=== PATIENT | female | born 1995 | race Hispanic/Latino ===

== ENCOUNTER 2019-09-11 16:49 | Day surgery (SDC) | payer OTHER ==
[2019-09-11 17:26] VITALS: BMI 27.3
[2019-09-11] MEDS ORDERED: hydrALAZINE 20 MG/ML VIAL SLOW IVP PRN (17:39)
--- NOTE | 2019-09-11 18:04 | PDOC.FPROB ---
FMR OB H&P: Medications - Current Home Medications: Medication Instructions Recorded Confirmed Type Mv-Mn/Iron/FA/Herbal/Digestive 10 mg PO DAILY 08/14/19 08/14/19 History [ One Tablet] Allergies/Adverse Reactions: Allergies Allergy/AdvReac Type Severity Reaction Status Date / Time No Known Allergies Allergy Verified 09/11/19 17:23 FMR OB H&P: A/P Discussion: Date/Time: 09/11/19 8402 This H&P was discussed with [] and [] who agree with the above documentation and plan.
[2019-09-11 18:42] LABS: ALT (SGPT) Less than 7 U/L (8-55); Albumin 3.2 g/dL (3.5-5.0); Alkaline Phosphatase 193 U/L (40-110); Calc. Creatinine Clearance 155 mL/min (70-130); Chloride 109 mmol/L (98-107); Estimated GFR-MDRD Greater than 90; Globulin 3.3 g/dL (2.4-3.5); Potassium 3.7 mmol/L (3.5-5.1); Protein, Total 6.5 g/dL (6.0-8.3); Sodium 138 mmol/L (136-145)
[2019-09-11 18:48] LABS: Calcium 9.5 mg/dL (7.8-10.44); Glucose 108 mg/dL (70-105)
[2019-09-11 18:50] LABS: Anion Gap 14 mmol/L (10-20); Bilirubin, Total 0.2 mg/dL (0.2-1.2); Carbon Dioxide 19 mmol/L (22-29)
[2019-09-11 18:53] LABS: BUN (Urea Nitrogen) 9 mg/dL (7.0-18.7)
[2019-09-11 18:54] LABS: AST (SGOT) 14 U/L (5-34)
[2019-09-11 19:37] LABS: Creatinine, Urine 74.93 mg/dL (47-110)
[2019-09-11 19:41] LABS: #Basophils 0.1 thou/uL (0.0-0.2); #Lymphocytes 2.4 thou/uL (1.20-3.40); #Monocytes 0.5 thou/uL (0.11-0.59); #Neutrophils 3.7 thou/uL (1.40-6.50); %Eosinophils 0.7 % (0.0-10.0); %Lymphocytes 35.3 % (21.0-51.0); %Monocytes 7.7 % (0.0-10.0); %Neutrophils 55.3 % (42.0-75.0); Hemoglobin 13.8 g/dL (12.0-16.0); Mean Corpuscular Hemoglobin 32.1 pg (27.0-31.0); Mean Corpuscular Volume 94.4 fL (78.0-98.0); Mean Platelet Volume 10.5 fL (7.4-10.4); Platelet Count 170 thou/uL (130-400); White Blood Cell (WBC) Count 6.7 thou/uL (4.8-10.8)
--- NOTE | 2019-09-11 20:29 | PDOC.EVN ---
Event Note - Event Note Event Note: OBGYN Faculty Patient of the C Sent here for BP obs and U P/Cr ratio of 1 in the clinic earlier. Patient is a 24 yo G1 at 35 weeks with BPs 130/80s to 150/802. No evere pressures here. No symptoms noted. Case reviewed with Dr Santos and Lizz keyes seen the patient at bedside. OK for outpatient care with close follow up. We will give celestone now and second tomorrow in case medically indicated labor occurs. Has IOL for 36 weeks 6 days for ripening. PIH info given. See full H&P
--- NOTE | 2019-09-11 20:35 | PDOC.FPROB ---
FMR OB H&P: Medications - Current Home Medications: Medication Instructions Recorded Confirmed Type Mv-Mn/Iron/FA/Herbal/Digestive 10 mg PO DAILY 08/14/19 08/14/19 History [ One Tablet] Allergies/Adverse Reactions: Allergies Allergy/AdvReac Type Severity Reaction Status Date / Time No Known Allergies Allergy Verified 09/11/19 17:23 FMR OB H&P: Results - Labs Lab results: Laboratory Results - last 24 hr 09/11/19 09/11/19 09/11/19 17:49 18:30 19:35 WBC 6.7 RBC 4.30 Hgb 13.8 Hct 40.5 MCV 94.4 MCH 32.1 H MCHC 34.0 RDW 12.0 Plt Count 170 MPV 10.5 H Neutrophils % 55.3 Lymphocytes % 35.3 Monocytes % 7.7 Eosinophils % 0.7 Basophils % 1.0 Neutrophils # 3.7 Lymphocytes # 2.4 Monocytes # 0.5 Eosinophils # 0.0 Basophils # 0.1 Sodium 138 Potassium 3.7 Chloride 109 H Carbon Dioxide 19 L Anion Gap 14 BUN 9 Creatinine 0.57 L Estimated GFR (MDRD) Greater than 90 Glucose 108 H Calcium 9.5 Total Bilirubin 0.2 AST 14 ALT Less than 7 L Alkaline Phosphatase 193 H Serum Total Protein 6.5 Albumin 3.2 L Globulin 3.3 Albumin/Globulin Ratio 1.0 L U Random Total Protein 80 H Urine Creatinine 74.93 FMR OB H&P: A/P - Problem List (1) Third trimester Current Visit: No Status: Acute Code(s): Z34.93 - ENCNTR FOR SUPRVSN OF NORMAL PREG, UNSP, THIRD TRIMESTER Discussion: Date/Time: 09/11/192033 PCP: Herminio- C HPI: Patient sent in from clinic for evaluation of pre-e. Had a pr/cr ratio of 1.0 in clinic and thus was sent for further evaluation. She affirms movement, denies cxns, ROM, bleeding. Denies HERRON, visual changes, SOB, or swelling. History: OB hx: G1 PMH: none PSH: none Meds: PNV All: NKDA Soc Hx: denies smoking, alcohol, drugs Fam Hx: denies downs, congenital defects REVIEW OF SYSTEMS: Gen: no fever, chills, or sweats Neuro: no numbness/tingling, no weakness, denies headache ENT: denies congestion Eyes: no visual changes Resp: denies cough, no production, no SOB, no wheeze Card: denies chest pain, no palpitations GI: denies nausea, vomiting, diarrhea : no dysuria, no hematuria Skin: no rash, no erythema Psych: denies hx anxiety/depression Vitals: T: 98.5 R: 18 BP: 123/84- Max 153/69 x1 P:67 at: 98% on RA PHYSICAL EXAMINATION: General: NAD, alert and oriented x3 HEENT: EOMI, normal sclera Neck: Supple. Full ROM. Heart/Cardiovascular System: RRR, Cap refill < 3 seconds, no rub, no murmur Lungs/Respiratory System: clear to auscultation bilaterally. No increased work of breathing. Room air. Abdomen/Gastro-Intestinal System: no abdominal tenderness, normal bowel sounds, Gravid Extremities: Warm extremities. No cyanosis or edema. Neuro: No gross deficits appreciated Psychiatry: Awake, Alert and cooperative with exam Skin: no lesions, no rashes Musculoskeletal: Full ROM A/P: This is a 23 yo here for pre-e r/o FHT: 140 baseline, mod variability, no decels, accels present [place]: no contractions # PIH w/o severe features - Pr/cr still 1.06, 1.0 in clinic - Asx - 3 mild range pressures - Will give steroids today, RTC for repeat dose tomorrow, and send home with precautions, discussed these at length including HERRON, vision changes, SOB, or abdominal pain. Has BP cuff at home RTC for pressures >160/110 - Scheduled for induction on sep 24 per patient, delivery is indicated at 37.0 wks
[2019-09-11] MEDS ORDERED: Betamet Acet/Betamet Na Ph 30 MG/5 ML VIAL IM SCH (20:45)
--- NOTE | 2019-09-11 22:30 | PDOC.BPN ---
Addendum entered and electronically signed by Lynda Buchanan MD 09/11/19 22 :31: Delete this note. Wrong patient. Original Note: <Lynda Buchanan - Last Filed: 09/11/19 22:29> - Brief Progress Note Placed cook catheter successfully. Previous SVE /-2. Will start pitocin. Dr. Jeison Tolentino present for insertion of balloon. <Jeison Tolentino - Last Filed: 09/11/19 23:01> - Brief Progress Note Entered IN ERROR.
== END 2019-09-11 21:30 | disposition home or self-care (01) ==
LOC: L&D/OP 16:49
PROVIDERS: ATTEND Obstetrics & Gynecology
DX: O13.3 Gestational [pregnancy-induced] hypertension without significant proteinuria, third trimester (principal); Z3A.35 35 weeks gestation of pregnancy
CPT/HCPCS: 36415; 51701; 80053; 82570; 84156; 85025; 87081; 99284; J0702

== ENCOUNTER 2019-09-12 20:32 | Day surgery (SDC) | payer OTHER ==
[2019-09-12] MEDS ORDERED: hydrALAZINE 20 MG/ML VIAL SLOW IVP PRN (21:11)
[2019-09-12] MEDS ORDERED: Betamet Acet/Betamet Na Ph 30 MG/5 ML VIAL IM SCH (21:15)
--- NOTE | 2019-09-12 21:33 | PDOC.FPROB ---
FMR OB H&P: HPI - History of Present Illness Chief Complaint: BP check, steroid Indentification: 24 year old at 35.1 wks History of Present Illness: 24 year old at 35.1 wks presents for repeat BP and 2nd dose of steroids. Patient recently diagnosed with pre-E. She is checking her BP's at home and reports no BP's above 160/110. Patient denies headache, vision changes, RUQ pain , vaginal bleeding, vaginal discharge, LoF, or contractions. 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 CLINICAL RESEARCH MANAGER History: Denies - Surgical History Sx History: Denies - Social History Social History: Denies alcohol, tobacco, or drug use - Family History Family History: Denies significant family history FMR OB H&P: Medications - Current Home Medications: Medication Instructions Recorded Confirmed Type Mv-Mn/Iron/FA/Herbal/Digestive 10 mg PO DAILY 08/14/19 08/14/19 History [ One Tablet] Allergies/Adverse Reactions: Allergies Allergy/AdvReac Type Severity Reaction Status Date / Time No Known Allergies Allergy Verified 09/11/19 17:23 FMR OB H&P: ROS - Review of Systems General: denies: fever/chills Eyes: reports: others (Right eye irritation, redness). denies: vision changes ENT: denies: nasal congestion, sinus pain/pressure, sore throat Cardiovascular: denies: chest pain, palpitation, edema Respiratory: denies: cough, congestion, shortness of breath Gastrointestinal: denies: abdominal pain, nausea, vomiting, diarrhea Genitourinary (Female): denies: dysuria, vaginal discharge, vaginal pain, vaginal bleeding, contractions Musculoskeletal: denies: pain, stiffness Neurologic: denies: numbness, syncope Integumentary: denies: itching, rash Psychological: denies: depression, anxiety FMR OB H&P: Vital Signs - Maternal Vital signs: BP 143/92 89 Afebrile - Heart Tones Baseline: 135 Variability: moderate Acceleration: present Deceleration: absent [place] contractions every: None FMR OB H&P: Physical Exam - Physical Exam General: NAD, awake, alert and oriented HEENT: MMM, conjunctiva clear (Right sided conjunctiva injected), grossly normal vision, grossly normal hearing, other (Erythema along chin) Deviation from normal: Facial rash; erythema of bilateral medial cheeks, sparing bridge of nose Heart: RRR, pulses present General: no respiratory distress Abdomen: soft, gravid Musculoskeletal: pulses present, FROM in all four extremities Neurological: no tremor, no focal deficit Skin: no rash, capillary refill <2 seconds Lymphatic: no unusual bruising or bleeding, no purpura Psychiatric: intact recent and remote memory, good judgement and insight, normal mood and affect FMR OB H&P: A/P - Problem List (1) Pre-eclampsia Current Visit: Yes Status: Acute Code(s): O14.90 - UNSPECIFIED PRE-ECLAMPSIA , UNSPECIFIED TRIMESTER (2) Third trimester Current Visit: No Status: Acute Code(s): Z34.93 - ENCNTR FOR SUPRVSN OF NORMAL PREG, UNSP, THIRD TRIMESTER Disposition: 24 year old at 35.1 wks presents for repeat BP check sIUP - at 35.1 wks - G1 - Reactive NST Pre-E without severe features - Urine protein/creatinine 1.06 - 2nd dose of betamethasone given today - BP 143/92 today - Will need IOL at 37 weeks, not currently scheduled. - Advised to follow with [facility] next week Dispo: Discharge home. Return precautions provided. Follow up with [facility] next week. Discussion: Date/Time: 09/12/192123 This H&P was discussed with Dr. Malik who agrees with the above documentation and plan. Signature: Elissa Hernandez, PGY-3
== END 2019-09-12 21:41 | disposition home health service, planned readmission (86) ==
LOC: L&D/OP 20:32
PROVIDERS: ATTEND Obstetrics & Gynecology
DX: O14.03 Mild to moderate pre-eclampsia, third trimester (principal); Z3A.35 35 weeks gestation of pregnancy
CPT/HCPCS: 59025; 96372; 99282; J0702

== ENCOUNTER 2019-09-18 16:41 | Inpatient (IN) | payer MEDICAID, OTHER, SELFPAY ==
[~2019-09-18 16:41] MED LIST: Bupivacaine 0.25% HCL 30 ML VIAL ONE; Lidocaine 2% MPF 10 ML AMP (For Epidural Use) ONE
[2019-09-18 17:19] VITALS: BMI 33.6
--- NOTE | 2019-09-18 17:50 | PDOC.FPROB ---
FMR OB H&P: HPI - History of Present Illness Chief Complaint: Pre-E History of Present Illness: Pt is a 24 yo at 36.0 weeks, KRISTI 10/16/19, who presented to [facility] for routine check up. She was noted to have a severe range pressure, 150/110. She was instructed to be seen on L&D for further workup. She was asymptomatic otherwise. She was seen on 09/12/19 and diagnosed with pre-e, protein: creatinine ration was 1.06 at the time. She was discharged with close follow up and instructed to be induced at 37 weeks. No medications were started for elevated pressures. She did received 2 doses of betamethasone. She checks her pressures at home with her highest pressures 150's/90's. Today she is asymptomatic. Denies HERRON, vision changes, RUQ pain, chest pain, SOB , oliguria, LE edema. Denies vaginal fluid, bleeding, discharge. Endorsed contractions/pelvic pressure every 30 mins. 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: denies - Surgical History Sx History: denies - Social History Social History: denies alcohol, tobacco, drugs - Family History Family History: non-contributory FMR OB H&P: Medications - Current Home Medications: Medication Instructions Recorded Confirmed Type Mv-Mn/Iron/FA/Herbal/Digestive 10 mg PO DAILY 08/14/19 09/18/19 History [ One Tablet] Allergies/Adverse Reactions: Allergies Allergy/AdvReac Type Severity Reaction Status Date / Time No Known Allergies Allergy Verified 09/18/19 17:17 FMR OB H&P: ROS - Review of Systems General: denies: fever/chills, weight/appetite/sleep changes Eyes: denies: vision changes, double vision ENT: denies: nasal congestion, rhinorrhea Cardiovascular: denies: chest pain, palpitation, edema Respiratory: denies: cough, congestion, shortness of breath Gastrointestinal: denies: abdominal pain, nausea, vomiting, diarrhea, constipation Genitourinary (Female): reports: contractions, vaginal pressure. denies: incontinence, dysuria, vaginal discharge, vaginal pain, vaginal bleeding Musculoskeletal: denies: pain, stiffness Neurologic: denies: numbness, syncope, seizures, weakness FMR OB H&P: Vital Signs - Maternal Vital signs: Vital Signs - First Documented Temp Pulse Resp BP 98.6 F 103 H 18 139/95 H 09/18/19 16:59 09/18/19 16:59 09/18/19 16:59 09/18/19 16:59 - Heart Tones Baseline: 150 Variability: moderate Acceleration: absent Deceleration: absent Category: category 1 [place] contractions every: [id number] FMR OB H&P: Physical Exam - Physical Exam General: NAD, awake, alert and oriented HEENT: PERRLA, EOMI Neck: FROM, trachea midline Heart: RRR, normal S1/S2 General: CTAB, no respiratory distress, good air movement, no wheezing Abdomen: soft, gravid, non-tender Musculoskeletal: normal gait and station, pulses present Neurological: cranial nerves II through XII intact Skin: no rash, capillary refill <2 seconds Lymphatic: no purpura, no petechia Psychiatric: good judgement and insight - Pelvic Exam SVE: 1cm/25%/-3 Mora score: 2 Membranes: Intact FMR OB H&P: Results - Labs Lab results: Hgb 14.7 Platelets 163 Uric Acid 4.4 AST 11 ALT 7 Protein:Creatinine ratio 1.98 BG 110 FMR OB H&P: A/P - Problem List (1) Gestational diabetes mellitus Current Visit: No Status: Acute Code(s): O24.419 - GESTATIONAL DIABETES MELLITUS IN , UNSP CONTROL (2) Pre-eclampsia Current Visit: No Status: Acute Code(s): O14.90 - UNSPECIFIED PRE-ECLAMPSIA , UNSPECIFIED TRIMESTER (3) Third trimester Current Visit: No Status: Acute Code(s): Z34.93 - ENCNTR FOR SUPRVSN OF NORMAL PREG, UNSP, THIRD TRIMESTER Discussion: Date/Time: 09/18/19 1750 24 yo at 36.0 weeks presents with Pre-E, severe range pressures: # Term affected by Pre-E w/ severe range pressures: 1cm/25%/-3 at 2130. Mora 2. FHT's 150 with moderate variability, contractions felt every 30 mins producing vaginal pressure. Betamethasone x 2 doses given last week. - monitor pt overnight. If pt has continued severe range pressures will need to consider induction of labor. - will not administer mg, antihypertensives at this time. # GDM - diet controlled This H&P was discussed with Dr. Whitehead and Dr. Tuttle who agree with the above documentation and plan. Addendum - Attending - Attending Attestation Date/Time: 09/19/19 0639 I personally evaluated the patient and discussed the management with Dr. Stanley I agree with the History, Examination, Assessment and Plan documented above with any addition or exceptions noted below. PT has had 2 isolated severe range bp. Remaining bp are wnl. has ocassional mild range pressures. Pt dx with preeclampsia by bp and proteinuria. No severe features on exam or by lab. Will bp monitor over 24hours. If meets severe criteria will keep for iol. fetus cat 1 tracing
[2019-09-18 17:56] LABS: #Basophils 0.1 thou/uL (0.0-0.2); #Lymphocytes 2.7 thou/uL (1.20-3.40); #Monocytes 0.6 thou/uL (0.11-0.59); #Neutrophils 4.7 thou/uL (1.40-6.50); %Basophils 1.2 % (0.0-1.0); %Eosinophils 0.5 % (0.0-10.0); %Lymphocytes 33.5 % (21.0-51.0); %Monocytes 6.8 % (0.0-10.0); Hemoglobin 14.7 g/dL (12.0-16.0); Mean Corpuscular HGB CONC 33.9 g/dL (32.0-36.0); Mean Corpuscular Hemoglobin 32.5 pg (27.0-31.0); Mean Platelet Volume 10.9 fL (7.4-10.4); Platelet Count 163 thou/uL (130-400); RBC Distribution Width 12.4 % (11.5-14.5)
[2019-09-18 18:36] LABS: ALT (SGPT) 7 U/L (8-55); AST (SGOT) 11 U/L (5-34); Albumin 3.4 g/dL (3.5-5.0); Alkaline Phosphatase 204 U/L (40-110); Anion Gap 13 mmol/L (10-20); BUN (Urea Nitrogen) 11 mg/dL (7.0-18.7); Bilirubin, Total 0.2 mg/dL (0.2-1.2); Calc. Creatinine Clearance 161 mL/min (70-130); Calcium 9.5 mg/dL (7.8-10.44); Carbon Dioxide 21 mmol/L (22-29); Chloride 105 mmol/L (98-107); Estimated GFR-MDRD Greater than 90; Globulin 3.3 g/dL (2.4-3.5); Glucose 110 mg/dL (70-105); Protein, Total 6.7 g/dL (6.0-8.3); Sodium 135 mmol/L (136-145); Uric Acid 4.4 mg/dL (2.6-6.0)
[2019-09-18] MEDS ORDERED: Ondansetron PF 4 MG/2 ML Vial IVP PRN (22:20)
[2019-09-19] MEDS ORDERED: Acetaminophen 500 MG TAB PO SCH (08:00)
[2019-09-19] MEDS: Acetaminophen 500 MG TAB PO PRN ×2 (08:16→16:05)
[2019-09-19] MEDS ORDERED: Calcium Gluc 4.6 MEQ/10 ML (100 MG/ML) SLOW IVP PRN (09:09)
[2019-09-19] MEDS ORDERED: Lidocaine 1% (PF) 30 ML VIAL SC PRN (09:09)
[2019-09-19] MEDS ORDERED: NS / Oxytocin 40 units/1000ml 1,000 ML IV PRN (09:09)
[2019-09-19] MEDS ORDERED: Magnesium Sulfate 20 GM/WATER 500 ML BAG IVPB SCH (09:15)
--- NOTE | 2019-09-19 09:18 | PDOC.LDPN ---
Labor & Delivery Progress Note - Subjective Subjective: comfortable, other (new onset headache) - Objective Vital signs reviewed and normal: yes General: NAD, resting Uterine fundus: non tender SVE: Nurse Rubia Patino Dilation: 1 Effacement: 100% Station: -3 FHT: variability present (no contractions. FHT 135 baseline, and reactive. ) [place] contractions every: not present - Assessment (1) Pre-eclampsia Code(s): O14.90 - UNSPECIFIED PRE-ECLAMPSIA, UNSPECIFIED TRIMESTER Current Visit: No Status: Acute Qualifiers: Trimester: third trimester Qualified Code(s): O14.93 - Unspecified pre- eclampsia, third trimester (2) Third trimester Code(s): Z34.93 - ENCNTR FOR SUPRVSN OF NORMAL PREG, UNSP, THIRD TRIMESTER Current Visit: No Status: Acute Plan: labor augmentation -: 24 y/o @ 36.1 wks dated by 14 wk sono presenting with severe range pressures, admitted for medical induction of labor 1. IOL of IUP @ 36.1 wks - SVE @2100 on 09/18/-3, @ 0820 on 09/19/-3 posterior - inducing with cytotec, will re-evaluate in 4 hours. Will consider balloon insertion if minimal change. If pt makes cervical change, will start pitocin. - FHT's 135 baseline, reactive strip - No contractions on toco. - Pt desires epidural for pain management. 2. Pre-E, with severe features - Urine Pro/Cr 1.9 - New onset headache - few severe range pressures >160/110 - started Mag - monitor BP Q15 min 3. A1GDM - random glucose 110 yesterday. Dispo: stable, admit for Cytotec induction for Pre-E. Discussed care plan with Dr. Haywood and Dr. Gonzalez, who agree with above plan. Addendum - Attending - Attending Attestation Date/Time: 09/19/19 1323 I personally evaluated the patient and discussed the management with Dr. Monsalve. 24 yo LAF with h/o labile BPs, and Prot/Cr of 1.98 on admit last night, now with HERRON this AM. Will start Mg and begin Cytotec to proceed with delivery. I agree with the History, Examination, Assessment and Plan documented above.
[2019-09-19] MEDS ORDERED: Misoprostol 100 MCG TAB ONE ×4 (09:43→19:27)
[2019-09-19] MEDS: Magnesium Sulfate 20 GM in Dextrose 5% in Water 460 ML IV SCH (10:36)
[2019-09-19] MEDS ORDERED: Ibuprofen 800 MG TAB PO PRN (12:36)
[2019-09-19 13:21] LABS: Mean Corpuscular HGB CONC 32.5 g/dL (32.0-36.0); Mean Corpuscular Hemoglobin 31.4 pg (27.0-31.0); Mean Corpuscular Volume 96.6 fL (78.0-98.0); Mean Platelet Volume 12.2 fL (7.4-10.4); Platelet Count 167 thou/uL (130-400); RBC Distribution Width 12.7 % (11.5-14.5); Red Blood Cell (RBC) Count 4.78 mill/uL (4.20-5.40); White Blood Cell (WBC) Count 7.3 thou/uL (4.8-10.8)
[2019-09-19 14:00] LABS: Syphilis Antibody Nonreactive (Nonreactive); Syphilis Antibody Index 0.04 S/CO (<1.00 Non-Reactive)
[2019-09-19 14:01] LABS: HBSAg Index 0.23 S/CO (0-0.99); Hep B Surf Ag Non-Reactive S/CO (NonReactive)
[2019-09-19 14:42] LABS: Bilirubin Negative (Negative); Blood, Urine 2+ (Negative); Clarity Turbid (Clear); Glucose, Urine (Dipstick) Normal (Negative); Leukocyte 75 Leu/uL (Negative); Nitrite Negative (Negative); Protein, Urine (Dipstick) 50 mg/dL (Neg-Trace); RBC/HPF 21-50 HPF (0-3); Squamous Epithelial 0-3 HPF (0-3); Transitional Epithelial 0-3 HPF (None Seen); Urobilinogen Normal mg/dL (Less than 2)
[2019-09-19 14:43] LABS: Bacteria/HPF 1+ HPF (None Seen)
--- NOTE | 2019-09-19 20:27 | PDOC.LDPN ---
Labor & Delivery Progress Note - Subjective Subjective: painful contractions - Objective Abnormal vital signs: 156/100 BP General: NAD, resting, breathing through contractions Uterine fundus: non tender Dilation: 3 Effacement: 50% Station: -3 FHT: category 1, variability present [place] contractions every: 5 min Other exam findings: SROM @ 2000 Resuscitative measures: amniofusion, maternal IV fluids, maternal position change - Assessment (1) Gestational diabetes mellitus Code(s): O24.419 - GESTATIONAL DIABETES MELLITUS IN , UNSP CONTROL Current Visit: No Status: Acute (2) Pre-eclampsia Code(s): O14.90 - UNSPECIFIED PRE-ECLAMPSIA, UNSPECIFIED TRIMESTER Current Visit: No Status: Acute Qualifiers: Trimester: third trimester Qualified Code(s): O14.93 - Unspecified pre- eclampsia, third trimester (3) Third trimester Code(s): Z34.93 - ENCNTR FOR SUPRVSN OF NORMAL PREG, UNSP, THIRD TRIMESTER Current Visit: No Status: Acute Plan: continue plan of care -: 1) Preeclqamspia with severe features - recent cervical check showed /-3 - cat 1 strip baseline fhts 135 pos accles no late or variable decels - SROM approx 2000 - feeling painful contractions q5min, will recheck cervix q2hr and assess for change - consider pit pending cervical exams - GBS neg, no ppx Addendum - Attending - Attending Attestation Date/Time: 09/19/19 8484 I personally evaluated the patient and discussed the management with Dr. Beckman. I agree with the Assessment and Plan documented above.
[2019-09-19] MEDS ORDERED: Fentanyl 4 mcg/Bup 0.1% Cadd 100 ML ONE (20:43)
[2019-09-19] MEDS ORDERED: Ondansetron PF 4 MG/2 ML Vial IVP PRN (21:19)
[2019-09-19] MEDS ORDERED: Naloxone HCl 0.4 mg/ml Vial IVP PRN ×2 (21:19)
[2019-09-19] MEDS ORDERED: Promethazine HCl 25 MG/ML VIAL IM PRN (21:19)
[2019-09-19] MEDS ORDERED: diphenhydrAMINE 50 MG/ML VIAL IVP PRN (21:19)
[2019-09-19] MEDS ORDERED: Lactated Ringer's 500 ML IV PRN (21:19)
[2019-09-19] MEDS ORDERED: Acetaminophen 325 MG TAB PO PRN (21:19)
[2019-09-19] MEDS ORDERED: ePHEDrine/0.9% NaCl/PF SYRINGE 50 mg/10 ml SLOW IVP PRN (21:19)
[2019-09-19] MEDS ORDERED: Fentanyl 4 mcg/Bupivacaine 0.1% Cassette 100 ML EPIDURAL SCH (21:30)
[2019-09-19] MEDS ORDERED: Communication Order-Pharmacy FS SCH (21:30)
--- NOTE | 2019-09-19 21:42 | PDOC.LDPN ---
Labor & Delivery Progress Note - Subjective Subjective: comfortable, painful contractions - Objective Vital signs reviewed and normal: yes Dilation: 3-4 cm Effacement: 50% Station: -3 FHT: category 1 [place] contractions every: q2-3mins - Assessment (1) Gestational diabetes mellitus Code(s): O24.419 - GESTATIONAL DIABETES MELLITUS IN , UNSP CONTROL Current Visit: No Status: Acute (2) Pre-eclampsia Code(s): O14.90 - UNSPECIFIED PRE-ECLAMPSIA, UNSPECIFIED TRIMESTER Current Visit: No Status: Acute Qualifiers: Trimester: third trimester Qualified Code(s): O14.93 - Unspecified pre- eclampsia, third trimester (3) Third trimester Code(s): Z34.93 - ENCNTR FOR SUPRVSN OF NORMAL PREG, UNSP, THIRD TRIMESTER Current Visit: No Status: Acute Plan: continue plan of care -: 24 yo at 36.1 weeks presents with Pre-E, severe range pressures: # Term affected by Pre-E w/ severe range pressures: 3-4cm/50%/-3 at 2130. Mora 5. Head is not engaged. FHT's 140 with moderate variability. Betamethasone x 2 doses given last week. - monitor blood pressures - Mg Check, cervical check at 0000. Will consider starting pitocin if favorable. # GDM - diet controlled Addendum - Attending - Attending Attestation Date/Time: 09/20/19 0562 I personally evaluated the patient and discussed the management with Dr. Stanley. I agree with the Assessment and Plan documented above.
--- NOTE | 2019-09-19 22:22 | PDOC.LDPN ---
Labor & Delivery Progress Note - Subjective Subjective: comfortable, no concerns - Objective Vital signs reviewed and normal: yes General: NAD, resting Dilation: 5 Effacement: 75% Station: -2 FHT: category 1 [place] contractions every: q3 mins - Assessment (1) Gestational diabetes mellitus Code(s): O24.419 - GESTATIONAL DIABETES MELLITUS IN , UNSP CONTROL Current Visit: No Status: Acute (2) Pre-eclampsia Code(s): O14.90 - UNSPECIFIED PRE-ECLAMPSIA, UNSPECIFIED TRIMESTER Current Visit: No Status: Acute Qualifiers: Trimester: third trimester Qualified Code(s): O14.93 - Unspecified pre- eclampsia, third trimester (3) Third trimester Code(s): Z34.93 - ENCNTR FOR SUPRVSN OF NORMAL PREG, UNSP, THIRD TRIMESTER Current Visit: No Status: Acute Plan: continue plan of care -: 24 yo at 36.1 weeks presents with Pre-E, severe range pressures: # Term affected by Pre-E w/ severe range pressures: 5cm/75%/-2 at 2355. FHT's 140 with moderate variability. Betamethasone x 2 doses given last week. DTR's 2+, BP's < 160/110 - monitor blood pressures. - Mg Check, cervical check at 0400. - Continue current plan. # GDM - diet controlled Addendum - Attending - Attending Attestation Date/Time: 09/20/19 0655 I personally evaluated the patient and discussed the management with Dr. Stanley. I agree with the Assessment and Plan documented above.
[2019-09-20] MEDS: Magnesium Sulfate 20 GM in Dextrose 5% in Water 460 ML IV SCH ×2 (03:03→23:12)
[2019-09-20] MEDS ORDERED: hydrALAZINE 20 MG/ML VIAL SLOW IVP SCH (03:30)
[2019-09-20] MEDS ORDERED: Carboprost 250 MCG/ML AMP ONE (04:58)
[2019-09-20] MEDS ORDERED: Misoprostol 200 MCG TAB ONE (04:58)
[2019-09-20] MEDS ORDERED: Fentanyl 100 MCG/2 ML VIAL ONE (05:03)
[2019-09-20] MEDS ORDERED: Benzocaine-Menthol 82.5 ML CAN TOP PRN (05:31)
[2019-09-20] MEDS ORDERED: Preparation H Ointment 28 GM TUBE PR PRN (05:31)
[2019-09-20] MEDS ORDERED: hydrALAZINE 20 MG/ML VIAL SLOW IVP PRN (05:31)
[2019-09-20] MEDS ORDERED: Adacel (T-DAP) 0.5 ML SYRINGE IM ONE (05:31)
[2019-09-20] MEDS ORDERED: Bisacodyl 10 MG SUPP PR PRN (05:31)
[2019-09-20] MEDS ORDERED: Milk Of Magnesia 30 ML UDCUP PO PRN (05:31)
[2019-09-20] MEDS ORDERED: Lanolin Ointment 7 GM TUBE TOP PRN (05:31)
--- NOTE | 2019-09-20 05:43 | PDOC.OPDEL ---
OB Operative/Delivery Note Delivery Dr/Surgeon: Chastity/Rk/Marry/Jaden Pre-Delivery Diagnosis: medically indicated induction Procedure/Post Delivery Dx: spontaneous vaginal delivery Anesthesia: epidural - Additional Findings/Plan Placenta delivered: manual removal Repaired Obstetrical Laceration: 1st degree Compilations/Other Findings: Diagnoses Prior to Delivery: # Pre-Term # Pre-E w/ severe blood pressures # A1GDM # [place] non-immune Diagnoses Post Deliver: # Pre-Term # Pre-E w/ severe blood pressures # A1GDM # [place] non-immune # Placental Cord Avulsion w/ manual extraction # 1st Degree Laceration # Bilateral Periurethral Lacerations This is 24 yo F G1 P 0 @ 36.2 wks who delivered a viable F at 0441 on 09/20. Following an uneventful antepartum course, a vigorous female was delivered over an intact perineum in the left occipitoanterior position. Anterior Shoulder and then remainder of the body delivered. No nuchal cord. The head was held down and mouth and nares were bulb suctioned. Cord clamped after delayed cord clamping and cut and cord blood collected. Placenta manually delivered intact after cord avulsion. 3 vessel cord noted. Fundal massage was performed and the fundus was firm. The cervix and vagina were inspected and found to have bilateral periurethral lacerations noted and repaired with 2-0 chromic suture in the usual fashion with good approximation and hemostasis; first degree laceration noted and repaired with 3-0 chromic suture after fentanyl was given for manual extraction of placenta. Continued magnesium. QBL 328 mls. Infant went to nursery in good condition for routine care. Apgars were 8/9 at 1 & 5 minutes, respectively. Patient tolerated delivery well and went to after routine recovery/care. Upper level addendum: I, Mateo Beckman, DO agree with the above findings with exceptions noted below: 24 yo G1 s/p complicated by cord avulsion and retained placenta requiring manual extraction. Anesthesia called for adequate pain control prior to placental extraction, pt given 50mcg fentanyl prior to extraction. Placenta removed intact. 1st degree perineal laceration repaired by Dr Haywood with 2-0 chromic in running locking fashion and hemostasis noted after repair. Additionally, periurethral lacerations repaired by Dr Haywood with 3-0 chromic after placement of jones catheter, hemostasis noted b/l after repair. Given manual extraction, pp abx given ancef X3 doses ordered. Overall pt tolerated delivery and repair well with hemostasis noted after completion of repairs. Jones to remain in place 24 hours and pt to cont mag pp for severe preeclampsia. QBL pending. Post delivery plan: routine recovery Addendum - Attending - Attending Attestation Date/Time: 09/24/19 0912 I personally treated the patient with the Resident Team and discussed the management with Drs. Stanley and Rk. complicated by retained placenta, manual removal, repair of bilateral periurethral lacerations, and midline vaginal laceration. Jones placed. ABX x 3 doses ordered. I agree with the History, Examination, Assessment and Plan documented above.
[2019-09-20] MEDS ORDERED: NS / Oxytocin 40 units/1000ml 1,000 ML IV SCH (05:45)
--- NOTE | 2019-09-20 08:05 | PDOC.EVN ---
Event Note - Event Note Event Note: Magnesium Check: Pt is very tired from anesthesia, but otherwise has no complaints. Denies difficulty breathing or CP. VS: BP137/82, P110, O296%RA I/O: 100-200ml/hr PE: Gen: drowsy, NAD Lungs: non labored : jones in place with gross hematuria Neuro: DTR's 2/4, brisk Continue Mg for 24h. Repeat Mg check in 4h. Addendum - Attending - Attending Attestation Date/Time: 09/24/19 0928 I personally discussed the management with Dr. Tuttle. I agree with the Assessment and Plan documented above.
[2019-09-20] MEDS: CEFAZOLIN 1 GM in Sodium Chloride 0.9% 100 ML IVPB SCH ×3 (08:19→23:58)
[2019-09-20] MEDS: Ibuprofen 800 MG TAB PO SCH ×3 (08:21→21:57)
--- NOTE | 2019-09-20 14:24 | PDOC.PP ---
Post Progress Note Post Day #: 1 Subjective: 24 yo G1 s/p to a AGA female at ~430 09/20/2019 2/2 mIOL for preE with severe range blood pressures. PPD 0 Doing well. On magnesium for 24 hours (until 09/21/19 0430) pending BPs. UOP adequate Asymptomatic this morning. PO intake tolerated: yes Flatus: yes Ambulation: yes Vital Signs (12 hours) Pulse BP 09/20/19 03:47 103 H 156/101 H Weight Weight 73.028 kg - Physical Examination General: NAD Cardiovascular: no m/r/g, RRR Respiratory: clear to auscultation bilaterally Abdominal: + bowel sounds Fundus firm & at: umbilicus Skin: CS incision dry & intact Neurological: no gross focal deficits Psychiatric: A&Ox3 Result Diagrams: 09/19/19 13:09 09/18/19 17:50 Additional Labs: Post Labs Blood Type O POSITIVE 09/19/19 13:09 Hep Bs Antigen Non-Reactive S/CO (NonReactive) 09/19/19 13:09 (1) Term delivered Code(s): O80 - ENCOUNTER FOR FULL-TERM UNCOMPLICATED DELIVERY Status: Acute (2) (normal spontaneous vaginal delivery) Code(s): O80 - ENCOUNTER FOR FULL-TERM UNCOMPLICATED DELIVERY Status: Acute (3) Preeclampsia, severe Code(s): O14.10 - SEVERE PRE-ECLAMPSIA, UNSPECIFIED TRIMESTER Status: Acute (4) Gestational diabetes mellitus Code(s): O24.419 - GESTATIONAL DIABETES MELLITUS IN , UNSP CONTROL Status: Acute - Assessment/Plan 24 yo G1 @ 36.2wks s/p today 2/2 mIOL for preE with severe range blood pressures, on mag. PPD0 1.)sIUP, pre-term, delivered 2.)PreE with severe features (blood pressure) -s/p mIOl to a AGA female. Doing well. On mag. UOP adequate. BPs controlled. Asymptomatic. Ok to dc mag at 0430 09/21/19. -Monitor for additional 24 hours after that -continue other routine care -mag checks q4h by residents. -monitor blood loss, cord avulsion and periurethral lacerations Leeroy Gonzalez MD, PGY-3 Addendum - Attending - Attending Attestation Date/Time: 09/24/19 [id number] I personally discussed the management with Dr. Altamirano. I agree with the Assessment and Plan documented above.
--- NOTE | 2019-09-20 16:13 | PDOC.BPN ---
- Brief Progress Note Patient is a 24 y/o G1 @ 36.2wks s/p on 09/20 2/ mIOL for Pre-Eclampsia w / severe-range BP currently repreE with severe range blood pressures, currently receiving Mg. Approximate Time of Evaluation: 1600 S: Patient was resting comfortably at the time of evaluation with her and child at bedside. Patient is Turkish-speaking only, and a die engraving supervisor had to be used for portions of the evaluation. The patient denied any problems since her last evaluation, specifically to include headaches, changes in vision , CP or SOB, RUQ pain, new-onset swelling of her hands or feet O: BP: No severe-range readings - most elevated BP was 140/98 Urine: ~200 ml present in collection bag HENT: Normocephalic and atraumatic head. Eyes demonstrated PERRL w/ appropriate tracking. No oropharyngeal erythema or exudates, no tongue deviation. Trachea midline w/o LAD. CV: RRR w/o murmurs, clicks, gallops or rubs. +2 pulses at Radial Arteries and Dorsalis Pedis Arteries. Resp: CTAB w/o wheezes, rales or rhonchi ABD: NBS w/o RUQ pain or tenderness Extremities: No swelling of hands or feet noted Neuro: No hyper/hypo -reflexia at Brachioradialis or Patellar Tendons. No clonus noted. A/P 1) SIUP, Pre-Term, Delivered -Continue all other Routine Care 2) Pre-Eclampsia w/ Severe Features (BP) -Patient has no complaints at this time - will plan to DC Mg on 09/21 @ 0430 -Continue to monitor BP and Urine Output -Continue Q4H Neuro Checks
--- NOTE | 2019-09-20 20:20 | PDOC.BPN ---
- Brief Progress Note Patient is a 24 y/o G1 @ 36.2wks s/p on 09/20 2/ mIOL for Pre-Eclampsia w / severe BP, currently receiving Mg. Approximate Time of Evaluation: 1999 S: Patient resting comfortably. Denied any problems since her last evaluation, including HERRON, cp, sob, abdominal pain. Reports that she is trying to rest. O: BP: Range 117-142/57-83 since last check Urine: ~400 ml present in collection bag since last emptying. Patient has had > 125ml/hr urine output throughout the day HENT: Normocephalic and atraumatic head. EOMI. CV: RRR. No murmurs, clicks, gallops or rubs. +2 pulses at Radial Arteries and Dorsalis Pedis Arteries. Resp: CTAB w/o wheezes, rales or rhonchi ABD: +BS, soft, non-tender to palpation Extremities: No swelling of hands or feet noted BUE and BLE. No clonus noted. A/P 1) SIUP, Pre-Term, Delivered -Continue all other Routine Care 2) Pre-Eclampsia w/ Severe Features (BP) -No severe BP noted. No HERRON, cp, sob. 2+ reflexes. Adequate urine output. -Continue mag at this time, with plans to d/c at 0430 on 10/09 -Continue to monitor BP and Urine Output -Continue Q4H Mag Checks Lilly Campbell, PGY-1
[2019-09-20] MEDS: Ferrous Sulfate 325 MG TAB PO SCH (20:46)
[2019-09-20] MEDS: Docusate Calcium (SURFAK) 240 MG CAP PO SCH ×2 (20:46→21:57)
[2019-09-20] MEDS: Prenatal Vitamin 1 TAB PO SCH (20:47)
--- NOTE | 2019-09-21 00:34 | PDOC.BPN ---
- Brief Progress Note Patient is a 24 y/o s/p on 09/20 for mIOL for Pre-Eclampsia w/ severe BP, currently receiving Mag. Approximate Time of Evaluation: 09/21 S: Patient resting comfortably. Denied HERRON, cp, sob, abdominal pain. O: BP: Range 113-153/58-73 since last check Urine: ~125ml/hr HENT: Normocephalic and atraumatic head. EOMI. CV: RRR. No murmurs, clicks, gallops or rubs. +1 pulses at Radial Arteries and Dorsalis Pedis Arteries. Resp: CTAB w/o wheezes, rales or rhonchi ABD: +BS, soft, non-tender to palpation Extremities: No swelling of hands or feet noted BUE and BLE. No clonus noted. A/P 1) SIUP, Pre-Term, Delivered -Continue all other Routine Care 2) Pre-Eclampsia w/ Severe Features (BP) -No severe BP noted. No HERRON, cp, sob. 1+ reflexes. Adequate urine output. -Continue mag at this time, with plans to d/c at 0430 on 10/09 -Continue to monitor BP and Urine Output -Continue Q4H Mag Checks Lilly Campbell, PGY-1
--- NOTE | 2019-09-21 03:23 | PDOC.PP ---
Post Progress Note Post Day #: 1 PO intake tolerated: yes Flatus: yes Ambulation: yes Weight Weight 73.028 kg - Physical Examination General: NAD Cardiovascular: RRR Respiratory: non-labored breathing Abdominal: + bowel sounds, lochia (minimal), no distention, appropriately TTP Skin: no rash Neurological: no gross focal deficits Psychiatric: A&Ox3, normal affect Result Diagrams: 09/19/19 13:09 09/18/19 17:50 Additional Labs: Post Labs Blood Type O POSITIVE 09/19/19 13:09 Hep Bs Antigen Non-Reactive S/CO (NonReactive) 09/19/19 13:09 (1) (normal spontaneous vaginal delivery) Code(s): O80 - ENCOUNTER FOR FULL-TERM UNCOMPLICATED DELIVERY Status: Acute (2) Preeclampsia, severe Code(s): O14.10 - SEVERE PRE-ECLAMPSIA, UNSPECIFIED TRIMESTER Status: Acute (3) Term delivered Code(s): O80 - ENCOUNTER FOR FULL-TERM UNCOMPLICATED DELIVERY Status: Acute (4) Gestational diabetes mellitus Code(s): O24.419 - GESTATIONAL DIABETES MELLITUS IN , UNSP CONTROL Status: Acute - Assessment/Plan 24 yo G1 @ 36.2wks s/p today 2/2 mIOL for preE with severe range blood pressures, on mag. sIUP, pre-term, delivered] - PPD #1 - Routine PP care - Meeting milestone - Rh pos, rubella non-immune - Lochia minimal - GBS neg PreE with severe features (blood pressure) - s/p mIOl to a AGA female. Doing well. On mag. UOP adequate. BPs controlled. Asymptomatic. Ok to dc mag at 0430 09/21/19. - Monitor for additional 24 hours after Mg stopped - Monitor blood loss, cord avulsion and periurethral lacerations Periurethral lacerations - Remove jones this AM A1GDM Rubella non-immune - Will need MMR vaccine prior to d/c Dispo: Will transfer to [facility]. Continue to monitor BP's. Anticipate d/c home in AM.
[2019-09-21] MEDS: Ibuprofen 800 MG TAB PO SCH ×3 (06:21→21:17)
[2019-09-21] MEDS: Misoprostol 100 MCG TAB VAG SCH ×5 (06:47→15:33)
--- NOTE | 2019-09-21 07:49 | PRG ---
DATE OF SERVICE: 09/21/2019 SUBJECTIVE: The patient is a 24-year-old female, now day 1, status post a term spontaneous vaginal delivery complicated by severe PIH. The patient is status post magnesium early this morning about 5 o'clock. The patient reports she is tolerating p.o., voiding on her own, and having decreased lochia. OBJECTIVE: VITAL SIGNS: This morning, blood pressure currently 128/87, temperature 98.3, pulse of 86, respiratory rate of 17, saturating 98% on room air. GENERAL: She appears to be in no acute distress. She is alert, oriented, cooperative, and pleasant to interact with. GENITOURINARY: Fundus is firm. EXTREMITIES: Nontender, nonedematous. ASSESSMENT AND PLAN: The patient will be kept in the hospital today for blood pressure monitoring with possibility of discharge tomorrow should her pressures remain appropriate. Job ID: [id number]
[2019-09-21] MEDS: Ferrous Sulfate 325 MG TAB PO SCH ×2 (08:41→15:48)
[2019-09-21] MEDS: Prenatal Vitamin 1 TAB PO SCH (08:43)
[2019-09-21] MEDS: Docusate Calcium (SURFAK) 240 MG CAP PO SCH ×2 (08:44→21:17)
[2019-09-22] MEDS: Misoprostol 100 MCG TAB VAG SCH ×3 (00:58→09:02)
[2019-09-22] MEDS: Ibuprofen 800 MG TAB PO SCH (05:58)
--- NOTE | 2019-09-22 07:20 | PDOC.PP ---
Post Progress Note Post Day #: 3 PO intake tolerated: yes Flatus: yes Ambulation: yes Vital Signs (12 hours) Temp Pulse Resp BP Pulse Ox 09/22/19 05:25 98.7 F 84 20 128/76 98 09/22/19 00:40 97.5 F L 92 20 128/78 98 09/21/19 19:50 98.7 F 88 24 H 124/80 98 Weight Weight 73.028 kg - Physical Examination General: NAD Cardiovascular: no m/r/g, RRR Respiratory: clear to auscultation bilaterally Neurological: no gross focal deficits Psychiatric: A&Ox3 Result Diagrams: 09/19/19 13:09 09/18/19 17:50 Additional Labs: Post Labs Blood Type O POSITIVE 09/19/19 13:09 Hep Bs Antigen Non-Reactive S/CO (NonReactive) 09/19/19 13:09 (1) Term delivered Code(s): O80 - ENCOUNTER FOR FULL-TERM UNCOMPLICATED DELIVERY Status: Acute (2) (normal spontaneous vaginal delivery) Code(s): O80 - ENCOUNTER FOR FULL-TERM UNCOMPLICATED DELIVERY Status: Acute (3) Preeclampsia, severe Code(s): O14.10 - SEVERE PRE-ECLAMPSIA, UNSPECIFIED TRIMESTER Status: Acute (4) Gestational diabetes mellitus Code(s): O24.419 - GESTATIONAL DIABETES MELLITUS IN , UNSP CONTROL Status: Acute - Assessment/Plan A/P 1) SIUP, Pre-Term, Delivered -Continue all other Routine Care 2) Pre-Eclampsia w/ Severe Features (BP) -off mag for ~27 hours; no severe range bps -ppd 2, okay for dc -1 week follow-up for bp check
[2019-09-22 08:04] VITALS: TEMP 98.8
[2019-09-22] MEDS: Prenatal Vitamin 1 TAB PO SCH (09:02)
[2019-09-22] MEDS: Docusate Calcium (SURFAK) 240 MG CAP PO SCH (09:02)
[2019-09-22] MEDS: Ferrous Sulfate 325 MG TAB PO SCH (09:03)
[2019-09-22 12:04] VITALS: BP 126/83
== END 2019-09-22 15:16 | disposition home or self-care (01) | DRG 807 ==
LOC: L&D/OP 16:41 → L&D 22:20 → OBSVTOIN 22:20 → L&D 09-19 10:03 → 3SE 09-21 06:35
PROVIDERS: ADMIT Emergency Medicine; ATTEND Emergency Medicine
PROC: 10E0XZZ Delivery of Products of Conception, External Approach (ICD-10-PCS; principal; 2019-09-18)
PROC: 0UQMXZZ Repair Vulva, External Approach (ICD-10-PCS; 2019-09-18)
DX: O14.14 Severe pre-eclampsia complicating childbirth (principal); Z37.0 Single live birth; O69.0XX0 Labor and delivery complicated by prolapse of cord, not applicable or unspecified; O24.420 Gestational diabetes mellitus in childbirth, diet controlled; Z3A.36 36 weeks gestation of pregnancy; O71.82 Other specified trauma to perineum and vulva
CPT/HCPCS: 36415; 51702; 76815; 80053; 81001; 81003; 82570; 84550; 85025; 85027; 86780; 86850; 86900; 86901; 87086; 87340; 99285; J0360; J0690; J2001; J2405; J3010; J3475; J3490; J7070; S0020